=== PATIENT | female | born 1985 | race Caucasian/White ===

== ENCOUNTER → 2018-01-28 | Outpatient (CLI) | payer OTHER | LOC: CDED 08:49 | PROVIDERS: ATTEND Obstetrics & Gynecology | DX: O24.419 Gestational diabetes mellitus in pregnancy, unspecified control (principal) | CPT/HCPCS: 97802 ==

== ENCOUNTER 2018-02-16 20:56 | Inpatient (IN) | payer OTHER ==
[~2018-02-16] VITALS: Ht 167.6 cm; Wt 71.7 kg
[2018-02-16] MEDS ORDERED: LACTATED RINGER'S 1000 ML BOLUS IV PRN (22:00)
[2018-02-16] MEDS ORDERED: MINERAL OIL 10 ML VIAL TOPICAL PRN (22:00)
[2018-02-16] MEDS ORDERED: NS 500 ML BOLUS IV PRN (22:00)
[2018-02-16] MEDS ORDERED: ZOLPIDEM TARTRATE 5 MG TAB PO PRN (22:00)
[2018-02-16] MEDS ORDERED: NS 1000 ML IV PRN (22:00)
[2018-02-16] MEDS ORDERED: OXYTOCIN 30 UNITS 500ML PREMIX IV ONE (22:00)
[2018-02-16] MEDS ORDERED: ONDANSETRON HCL 4 MG/2 ML VIAL IV PUSH PRN (22:00)
[2018-02-16] MEDS ORDERED: LIDOCAINE HCL 1% 50 ML VIAL I-DERMAL PRN (22:00)
[2018-02-16] MEDS ORDERED: CITRIC ACID-SODIUM CITRATE LIQ 30 ML UDC PO SCH (22:00)
[2018-02-16] MEDS ORDERED: LIDOCAINE HCL 1% 50 ML VIAL INFIL PRN (22:00)
[2018-02-16] MEDS: LACTATED RINGER'S 1000 ML INJ 1,000 ML IV SCH (22:00)
[2018-02-16] MEDS ORDERED: DINOPROSTONE 10 MG INSERT-LEAVE FOR 12 HOURS VAGINAL ONE (22:00)
[2018-02-16 22:24] LABS: HEMATOCRIT 33.7 % (35.0-46.0); HEMOGLOBIN 11.8 GM/DL (11.6-15.3); MEAN CELL VOLUME 89.3 FL (80.0-100.0); MEAN CORPUSCULAR HEMOGLOBIN 31.4 PG (27.0-34.0); MEAN CORPUSCULAR HGB CONC 35.1 % (32.0-36.0); MEAN PLATELET VOLUME 7.9 FL (7.0-11.0); PLATELET COUNT 220 TH/MM3 (150-450); RED BLOOD COUNT 3.77 MIL/MM3 (4.00-5.30); RED CELL DISTRIBUTION WIDTH 13.8 % (11.6-17.2); WHITE BLOOD COUNT 9.8 TH/MM3 (4.0-11.0)
[2018-02-16 22:25] LABS: AUTOMATED NEUTROPHIL # 6.5 TH/MM3 (1.8-7.7); BASOPHIL % 0.3 % (0.0-2.0); EOSINOPHIL # 0.1 TH/MM3 (0-0.4); EOSINOPHIL % 1.4 % (0.0-4.0); LYMPH % 23.1 % (9.0-44.0); LYMPHOCYTE # 2.3 TH/MM3 (1.0-4.8); MONO % 9.4 % (0.0-8.0); MONOCYTE # 0.9 TH/MM3 (0-0.9); NEUT % 65.8 % (16.0-70.0)
[2018-02-16 22:27] LABS: BACTERIA, URINE RARE /hpf; BILIRUBIN, URINE NEG (NEG); BLOOD, URINE NEG (NEG); GLUCOSE,URINE NEG (NEG); KETONE, URINE TRACE mg/dL (NEG); MUCUS URINE MOD /lpf (OCC); NITRITE,URINE NEG (NEG); PH, URINE 5.5 (5.0-8.5); SQUAMOUS EPITHELIAL CELL URINE 2 /hpf (0-5); URINE COLOR YELLOW (YELLW/STRAW); URINE LEUKOCYTE ESTERASE NEG (NEG)
[2018-02-16 22:45] VITALS: RESP 18
[2018-02-16] MEDS ORDERED: PRENTAB7 (22:54)
[2018-02-16 23:35] VITALS: RESP 18
[2018-02-17] VITALS (42 sets, daily range): BP systolic 95–133; BP diastolic 56–96; PULSE 64–115; RESP 16–20; TEMP 97.8–98.7
[2018-02-17 02:18] LABS: ALBUMIN 2.9 GM/DL (3.4-5.0); DIRECT BILIRUBIN ADULT 0.1 MG/DL (0.0-0.2)
[2018-02-17 02:20] LABS: INDIRECT BILIRUBIN 0.1 MG/DL (0.0-0.8); TOTAL BILIRUBIN ADULT 0.2 MG/DL (0.2-1.0); TOTAL PROTEIN 6.9 GM/DL (6.4-8.2)
--- NOTE | 2018-02-17 07:45 | HHI.HP ---
HPI Chief Complaint 37 5/7 weeks G1 with persistently increasing BP over last five days. Mild in degree with BP in office yesterday 140/90 and 140/88. Some headaches, 1+ protein and CLARY of 7 for cervidil Date Seen: Feb 16, 2018 Time Seen: 11:00 Travel History International Travel<30 Days: No Contact w/Intl Traveler<30Days: No Known Affected Area: No History of Present Illness HPI 32 yo swf G1 with 8 week sonogram showing EDC 03/04/18 seen yesterday in office and brought in for cervidil as above. No nausea, vomiting, scotoma, RUQT or swelling. GFM. no leaking or bleeding. PNC began at 8 weeks with no prior HTN issues Booking BP was 120/60. Weeks Gestation: 38 Para: 0 History Past Medical History Medical History: Denies Significant Hx Past Surgical History Surgical History: No Previous Surgery Family History Family History: Negative Social History Alcohol Use: No Tobacco Use: No Substance Abuse: No Allergies-Medications (Allergen,Severity, Reaction): Coded Allergies: No Known Allergies (Unverified , 02/16/18) Home Meds Reported Medications Pnv No.95/Ferrous Fum/Folic AC ( Vitamins Tablet) 28 Mg Iron-800 Mcg Tablet 02/16/18 Review of Systems General / Constitutional: No: Fever, Weight Gain, Chills, Other Eyes: No: Diploplia, Blurred Vision, Visual changes, Pain, Photophobia HENT: No: Headaches, Vertigo, Lightheadedness Cardiovascular: No: Irregular Rhythm, Chest Pain or Discomfort, Palpitations, Tachycardia, Syncope, Varicosities, Edema, Cyanosis Respiratory: No: Cough, Short of Breath, Other Gastrointestinal: No: Nausea, Vomiting, Diarrhea Genitourinary: No: Decreased Urinary Output, Oliguria Musculoskeletal: No: Limited ROM, Weakness, Cramping, Edema, Pain Skin: No Rash, No Itching, No Dryness, No Lumps, No Change in Pigmentation, No Change in Nails, No Alopecia, No Lesions Neurologic: No: Weakness, Dizziness, Syncope, Focal Abnormalities, Coordination Problem, Headache, Slurred Speech, Seizures Psychiatric: No: Depression, Suicidal Ideations, Homicidal Ideation Endocrine: No: Heat Intolerance, Cold Intolerance, Polydipsia, Polyuria, Other Physical Exam Vital Signs Date Time Temp Pulse Resp B/P (MAP) Pulse Ox O2 Delivery O2 Flow Rate FiO2 02/17/18 07:30 18 02/17/18 07:29 98.2 02/17/18 07:27 70 112/69 (83) 02/17/18 05:30 18 02/17/18 05:00 16 02/17/18 04:28 97.8 16 02/17/18 04:20 70 128/79 (95) 02/17/18 03:14 16 02/17/18 02:41 16 02/17/18 02:15 18 02/17/18 01:13 18 02/17/18 00:45 18 02/17/18 00:14 18 02/17/18 00:14 98.0 70 118/70 (86) 02/16/18 23:35 18 02/16/18 22:45 18 Narrative GENERAL: Well-nourished, well-developed patient. SKIN: Warm and dry. HEAD: Normocephalic and atraumatic. EYES: No scleral icterus. No injection or drainage. ENT: No nasal drainage noted. Mucous membranes pink. Airway patent. NECK: Supple, trachea midline. No JVD. CARDIOVASCULAR: Regular rate and rhythm without murmurs, gallops, or rubs. RESPIRATORY: Breath sounds equal bilaterally. No accessory muscle use. BREASTS: Bilateral exam showed no masses , no retractions, no nipple discharge. ABDOMEN/GI: Abdomen soft, non-tender, bowel sounds present, no rebound, no guarding FH 38 vertex EFW 7 pounds pelvis clinically adequate 50% fingertip, very posterior and very low NITHIN strip category 1 BPP 8/8 but CLARY 7 EXTREMITIES: No cyanosis or edema. BACK: Nontender without obvious deformity. No CVA tenderness. NEUROLOGICAL: Awake and alert. Motor and sensory grossly within normal limits. Five out of 5 muscle strength in all muscle groups. Normal speech. Caprini VTE Risk Assessment Caprini VTE Risk Assessment: No/Low Risk (score <= 1) Caprini Risk Assessment Model Point Value = 1 Point Value = 2 Point Value = 3 Point Value = 5 Age 41-60 Minor surgery BMI > 25 kg/m2 Swollen legs Varicose veins or History of unexplained or recurrent spontaneous Oral contraceptives or hormone replacement Sepsis (< 1 month) Serious lung disease, including pneumonia (< 1 month) Abnormal pulmonary function Acute myocardial infarction Congestive heart failure (< 1 month) History of inflammatory bowel disease Medical patient at bed rest Age 61-74 Arthroscopic surgery Major open surgery (> 45 min) Laparoscopic surgery (> 45 min) Malignancy Confined to bed (> 72 hours) Immobilizing plaster cast Central venous access Age >= 75 History of VTE Family history of VTE Factor V Leiden Prothrombin [id number] Lupus anticoagulant Anticardiolipin antibodies Elevated serum homocysteine Heparin-induced thrombocytopenia Other congenital or acquired thrombophilia Stroke (< 1 month) Elective arthroplasty Hip, pelvis, or leg fracture Acute spinal cord injury (< 1 month) Prophylaxis Regimen Total Risk Factor Score Risk Level Prophylaxis Regimen 0-1 Low Early ambulation 2 Moderate Order ONE of the following: *Sequential Compression Device (SCD) *Heparin 5000 units SQ BID 3-4 Higher Order ONE of the following medications: *Heparin 5000 units SQ TID *Enoxaparin/Lovenox 40 mg SQ daily (WT < 150 kg, CrCl > 30 mL/min) *Enoxaparin/Lovenox 30 mg SQ daily (WT < 150 kg, CrCl > 10-29 mL/min) *Enoxaparin/Lovenox 30 mg SQ BID (WT < 150 kg, CrCl > 30 mL/min) AND/OR *Sequential Compression Device (SCD) 5 or more Highest Order ONE of the following medications: *Heparin 5000 units SQ TID (Preferred with Epidurals) *Enoxaparin/Lovenox 40 mg SQ daily (WT < 150 kg, CrCl > 30 mL/min) *Enoxaparin/Lovenox 30 mg SQ daily (WT < 150 kg, CrCl > 10-29 mL/min) *Enoxaparin/Lovenox 30 mg SQ BID (WT < 150 kg, CrCl > 30 mL/min) AND *Sequential Compression Device (SCD) Data Data Orders Orders Zolpidem (Ambien) (02/16/18 22:00) Dinoprostone Vag Insert (Cervidil Vag In (02/16/18 22:00) Lactated Ringer's 1000 Ml Inj (Lr 1000 M (02/16/18 22:00) Lactated Ringer's 1000 Ml Inj (Lr 1000 M (02/16/18 22:00) Sodium Chlorid 0.9% 500 Ml Inj (Ns 500 M (02/16/18 22:00) Sodium Chlor 0.9% 1000 Ml Inj (Ns 1000 M (02/16/18 22:00) Lidocaine 1% Inj (50 Ml) (Xylocaine 1% I (02/16/18 22:00) Citric Acid-Sodium Citrate Liq (Bicitra (02/16/18 22:00) Ondansetron Inj (Zofran Inj) (02/16/18 22:00) Fentanyl Inj (Fentanyl Inj) (02/16/18 22:00) Fentanyl Inj (Fentanyl Inj) (02/16/18 22:00) Oxytocin 30 Units-500ml Premix (Pitocin (02/16/18 22:00) Lidocaine 1% Inj (50 Ml) (Xylocaine 1% I (02/16/18 22:00) Light Mineral Oil (Muri-Lube Oil) (02/16/18 22:00) Admit To Inpatient (02/16/18 ) Diet Liquid (02/17/18 Breakfast) Activity Oob Ad Vanesa (02/16/18 22:17) Activity Oob Ad Vanesa (02/16/18 22:17) ^ Labor Induction (02/16/18 22:17) ^ Vaginal Insert (02/16/18 22:17) ^ Vaginal Lavage (02/16/18 22:17) Heart (02/16/18 22:17) Code Status (02/16/18 22:17) Vital Signs (Adult) .Per protocol (02/16/18 22:17) Activity Oob Ad Vanesa (02/16/18 22:17) Heart (02/16/18 22:17) Amnioinfusion (02/16/18 22:17) Urinary Catheter Management .ONCE (02/16/18 22:17) Complete Blood Count With Diff (02/16/18 22:17) Hold Clot (02/16/18 22:17) Abo/Rh Blood Type (02/16/18 22:17) Urinalysis - C+S If Indicated (02/16/18 22:17) Ob/Psych Drug Screen, Urine (02/16/18 22:17) Resp Oxygen Non Rebreathe Mask (02/16/18 ) ^ Epidural / Intrathecal Infus (02/16/18 22:17) Specimen To Be Collected PRN (3/26/18 22:17) Hepatic Functional Panel (02/16/18 22:17) Labs Laboratory Tests Test 02/16/18 22:00 White Blood Count 9.8 Red Blood Count 3.77 Hemoglobin 11.8 Hematocrit 33.7 Mean Corpuscular Volume 89.3 Mean Corpuscular Hemoglobin 31.4 Mean Corpuscular Hemoglobin Concent 35.1 Red Cell Distribution Width 13.8 Platelet Count 220 Mean Platelet Volume 7.9 Neutrophils (%) (Auto) 65.8 Lymphocytes (%) (Auto) 23.1 Monocytes (%) (Auto) 9.4 Eosinophils (%) (Auto) 1.4 Basophils (%) (Auto) 0.3 Neutrophils # (Auto) 6.5 Lymphocytes # (Auto) 2.3 Monocytes # (Auto) 0.9 Eosinophils # (Auto) 0.1 Basophils # (Auto) 0.0 CBC Comment DIFF FINAL Differential Comment Urine Color YELLOW Urine Turbidity CLEAR Urine pH 5.5 Urine Specific [place] 1.027 Urine Protein TRACE Urine Glucose (UA) NEG Urine Ketones TRACE Urine Occult Blood NEG Urine Nitrite NEG Urine Bilirubin NEG Urine Urobilinogen LESS THAN 2.0 Urine Leukocyte Esterase NEG Urine RBC LESS THAN 1 Urine WBC LESS THAN 1 Urine Squamous Epithelial Cells 2 Urine Bacteria RARE Urine Mucus MOD Microscopic Urinalysis Comment CULT NOT INDICATED Total Bilirubin 0.2 Direct Bilirubin 0.1 Indirect Bilirubin 0.1 Aspartate Amino Transf (AST/SGOT) 14 Alanine Aminotransferase (ALT/SGPT) 14 Alkaline Phosphatase 128 Total Protein 6.9 Albumin 2.9 Urine Opiates Screen NEG Urine Barbiturates Screen NEG Urine Amphetamines Screen NEG Urine Benzodiazepines Screen NEG Urine Cocaine Screen NEG Urine Cannabinoids Screen NEG Assessment/Plan Assessment and Plan mild ssx of pre eclampsia discussed bedrest and repeating assessment in 48 hours vs cervidil Reviewed risks and benefits chose cervidil last evening and came in at 8 pm Karla Carcamo MD Feb 17, 2018 07:45
--- NOTE | 2018-02-17 07:48 | PD.LABORPN ---
Subjective Subjective slept comfortably with minimal UCs no leaking or bleeding GFM no PARSONS , N V Objective Vital Signs Vital Signs Date Time Temp Pulse Resp B/P (MAP) Pulse Ox O2 Delivery O2 Flow Rate FiO2 02/17/18 07:30 18 02/17/18 07:29 98.2 02/17/18 07:27 70 112/69 (83) 02/17/18 05:30 18 02/17/18 05:00 16 02/17/18 04:28 97.8 16 02/17/18 04:20 70 128/79 (95) 02/17/18 03:14 16 02/17/18 02:41 16 02/17/18 02:15 18 02/17/18 01:13 18 02/17/18 00:45 18 02/17/18 00:14 18 02/17/18 00:14 98.0 70 118/70 (86) Objective 80-90% ft to one still posterior behind a very low head. uncomfortable exam no edema Weeks Gestation: 38 Assessment/Plan Assessment and Plan elevated BPs in office and normotensive here LFTs, platelets normal UA trace protein Will allow breakfast and shower and then pitocin if no change by afternoon, discuss continuing vs sending home and close surveillance in next week. Karla Carcamo MD Feb 17, 2018 07:48
[2018-02-17] MEDS ORDERED: OXYTOCIN 30 UNITS-500ML PREMIX 500 ML IV PRN (08:00)
[2018-02-17] MEDS: LACTATED RINGER'S 1000 ML INJ 1,000 ML IV SCH (09:17)
--- NOTE | 2018-02-17 21:35 | PD.LABORPN ---
Subjective Subjective Seen at 6 pm sitting on birthing ball had some mildly painful contractions earlier--none of significance now on 20 mu/min pit Objective Vital Signs Vital Signs Date Time Temp Pulse Resp B/P (MAP) Pulse Ox O2 Delivery O2 Flow Rate FiO2 02/17/18 21:00 20 02/17/18 20:57 98.0 02/17/18 20:57 72 128/85 (99) 02/17/18 19:20 82 18 121/82 (95) 02/17/18 17:31 68 117/76 (90) 02/17/18 16:31 84 123/66 (85) 02/17/18 16:00 68 124/88 (100) 02/17/18 15:47 98.7 02/17/18 15:47 20 02/17/18 15:30 77 116/74 (88) 02/17/18 15:00 85 119/79 (92) 02/17/18 14:30 72 118/81 (93) 02/17/18 14:00 73 116/75 (89) Objective head at +1 station and NITHIN and cervix very thin but cervix still facing backward and very much posterior. Weeks Gestation: 38 Pt started active labor?: No Medical induction of labor?: Yes Artificial rupture of membrane: No Assessment/Plan Assessment and Plan no symptoms of pre eclampsia at this time fluid was low and very low--patient desires to continue and this is reasonabl shower, dinner and pit off for an hour and then resum if unable to arom in am due to extreme pain with exam; will proceed with epidural and then pull cervix forward. Karla Carcamo MD Feb 17, 2018 21:35
[2018-02-18] VITALS (43 sets, daily range): BP systolic 94–132; BP diastolic 54–98; PULSE 60–100; RESP 16–22; TEMP 97.1–98.7; O2SAT 89–100
[2018-02-18] MEDS: LACTATED RINGER'S 1000 ML INJ 1,000 ML IV SCH (06:42)
[2018-02-18] MEDS ORDERED: fentaNYL 2MCG-BUPIV 0.125% INJ 100 ML ONE (06:46)
[2018-02-18] MEDS ORDERED: DO NOT ADMINISTER ANTICOAGULANTS PRN (08:00)
[2018-02-18] MEDS ORDERED: NO SYSTEM NARCOTICS PRN (08:00)
[2018-02-18] MEDS ORDERED: fentaNYL 2MCG-BUPIV 0.125% 100 ML EPIDURAL SCH (08:00)
[2018-02-18] MEDS ORDERED: ePHEDrine/NS 25 MG/5 ML SYRINGE IV PUSH PRN (08:00)
--- NOTE | 2018-02-18 09:42 | PD.OB.DELI ---
Weeks gestation: 38 Pt started active labor?: Yes Active labor start date: Feb 18, 2018 Active labor start time: 08:00 Medical induction of labor?: Yes Medical induction start date: Feb 17, 2018 Medical induction start time: 08:00 Artificial rupture of membrane: No Anesthesia: Epidural Episiotomy: None Vaginal Delivery: Normal Presentation: Occiput anterior Nuchal Cord: None Delayed cord clamping (45 sec): Yes Infant: Female Delivery date: Feb 18, 2018 Delivery time: 09:42 One Minute : 9 Five Minute : 9 Weight: 7 Placenta: Spontaneous delivery Laceration: 2 deg Repair: Chromic running Estimated blood loss: 200 Additional Information severe hemorrhoids Karla Carcamo MD Feb 18, 2018 09:42
[2018-02-18] MEDS ORDERED: ZOLPIDEM TARTRATE 5 MG TAB PO PRN (09:45)
[2018-02-18] MEDS ORDERED: WITCH HAZEL 50%/GLYCERIN 12.5% 40 PAD JAR TOPICAL PRN (09:45)
[2018-02-18] MEDS ORDERED: ALUMINUM/MAGNESIUM/SIMETH 30 ML CUP PO PRN (09:45)
[2018-02-18] MEDS ORDERED: ACETAMINOPHEN 325 MG TAB PO PRN (09:45)
[2018-02-18] MEDS ORDERED: SODIUM CHLORIDE 0.9% FLUSH 10 ML FLUSH IV FLUSH PRN (09:45)
[2018-02-18] MEDS ORDERED: BENZOCAINE 20% TOPICAL SPRAY 60 ML CAN TOPICAL PRN (09:45)
[2018-02-18] MEDS ORDERED: ONDANSETRON ODT 4 MG TAB PO PRN (09:45)
[2018-02-18] MEDS ORDERED: DOCUSATE SODIUM 50 MG/SENNA 8.6 MG TAB PO PRN (09:45)
[2018-02-18] MEDS ORDERED: OXYTOCIN 30 UNITS-500ML PREMIX 500 ML IV SCH (11:00)
[2018-02-18] MEDS: IBUPROFEN 800 MG TAB PO PRN ×2 (11:47→19:38)
[2018-02-18] MEDS ORDERED: MEASLES, MUMPS, RUBELLA VACCINE 0.5 ML VIAL SQ ONE (16:00)
[2018-02-18] MEDS ORDERED: DIPHTH/TETANUS/ACEL PERTUSSIS (BOOSTER) 0.5 ML VIAL/PFS IM ONE (16:00)
[2018-02-18] MEDS ORDERED: SODIUM CHLORIDE 0.9% FLUSH 10 ML FLUSH IV FLUSH SCH (21:00)
[2018-02-19] MEDS: IBUPROFEN 800 MG TAB PO PRN ×3 (03:19→19:10)
[2018-02-19] MEDS ORDERED: IBUP-232 PO (07:29)
--- NOTE | 2018-02-19 07:29 | HHI.DCPOC ---
Discharge Care Plan Diagnosis: (1) Normal vaginal delivery (2) Gestational hypertension Your Health Problems Are: Vaginal delivery Report Symptoms to Your Doctor -Temperature above 100.5 degrees -Redness, of incision or excessive or foul smelling drainage -Unusual pain or calf pain -Increased vaginal bleeding -Painful or difficulty urinating -Feelings of extreme sadness or anxiety after 2 weeks Goals to Promote Your Health * To prevent worsening of your condition and complications * To maintain your health at the optimal level Directions to Meet Your Goals Take your medications as prescribed Follow your dietary instruction Follow activity as directed Ensure plenty of rest for recovery Drink fluids for hydration Keep your appointments as scheduled Take your immunizations and boosters as scheduled If your symptoms worsen call your PCP, if no PCP go to Urgent Care Center or Emergency Room Smoking is Dangerous to Your Health. Avoid second hand smoke Call the 24-hour crisis hotline for domestic abuse at Regino Lora MD Feb 19, 2018 07:29
[2018-02-19 07:31] VITALS: BP 112/78; PULSE 78; RESP 17; TEMP 98.4
--- NOTE | 2018-02-19 07:32 | HHI.OB ---
Subjective Post Day: 1 Remarks Doing well, pain controlled, ambulating, voiding, vaginal bleeding less than menses. Objective Vitals/I&O Vital Signs Date Time Temp Pulse Resp B/P (MAP) Pulse Ox O2 Delivery O2 Flow Rate FiO2 02/18/18 20:32 98.4 81 17 117/76 (90) 02/18/18 16:45 77 18 106/67 (80) 89 02/18/18 16:45 97.1 02/18/18 12:20 18 02/18/18 11:40 20 02/18/18 11:30 63 129/89 (102) 02/18/18 10:55 20 02/18/18 10:45 91 125/76 (92) 02/18/18 10:30 97 124/83 (97) 02/18/18 10:23 20 02/18/18 10:15 76 125/77 (93) 02/18/18 10:10 20 02/18/18 10:01 90 122/84 (97) 02/18/18 09:46 100 20 129/88 (102) 02/18/18 09:40 20 02/18/18 09:30 94 132/88 (103) 02/18/18 08:46 20 02/18/18 08:30 70 95/54 (68) 02/18/18 08:00 77 111/98 (102) 02/18/18 07:42 72 105/59 (74) 02/18/18 07:40 83 99/78 (85) 02/18/18 07:36 84 112/76 (88) 02/18/18 07:33 87 114/73 (87) Objective Remarks GENERAL: Well-nourished, well-developed patient. CARDIOVASCULAR: Regular rate and rhythm without murmurs, gallops, or rubs. RESPIRATORY: Breath sounds equal bilaterally. No accessory muscle use. ABDOMEN/GI: Abdomen soft, non-tender. Fundus: Firm, non-tender at umbilicus. GENITOURINARY: Light to moderate bleeding. EXTREMITIES: No cyanosis or edema, non-tender, without signs of DVT. Medications and IVs Current Medications Medications (Trade) Dose Ordered Sig/Jose F Route Start Time Stop Time Status Last Admin Lactated Ringer's 1,000 ml @ 125 mls/hr Q8H IV 02/16/18 22:00 3/28/18 06:42 Lactated Ringer's 1,000 ml @ 3,000 mls/hr BOLUS PRN IV 02/16/18 22:00 Sodium Chloride 500 ml @ 1,000 mls/hr BOLUS PRN IV 02/16/18 22:00 Sodium Chloride 1,000 ml @ 100 mls/hr Q10H PRN IV 02/16/18 22:00 (Bicitra Liq) 30 ml COPING MACHINE OPERATOR PO 02/16/18 22:00 02/19/18 21:59 (Muri-Lube Oil) 10 ml UNSCH PRN TOPICAL 02/16/18 22:00 Oxytocin 500 ml @ 2 mls/hr TITRATE PRN IV 02/17/18 08:00 02/17/18 09:13 Miscellaneous Information No systemic narcotics to be given except... UNSCH PRN .XX 02/18/18 08:00 02/19/18 07:59 Miscellaneous Information DO NOT ADMINISTER ANY ANTICOAGUL... UNSCH PRN .XX 02/18/18 08:00 02/19/18 07:59 Fentanyl/ Bupivacaine HCl 100 ml @ 0 mls/hr TITRATE EPIDURAL 02/18/18 08:00 (ePHEDrine/NS 25 MG/5 ML SYR) 10 mg UNSCH PRN IV PUSH 02/18/18 08:00 02/19/18 07:59 (NS Flush) 2 ml BID IV FLUSH 02/18/18 21:00 (NS Flush) 2 ml UNSCH PRN IV FLUSH 02/18/18 09:45 (Tylenol) 650 mg Q4H PRN PO 02/18/18 09:45 (Motrin) 800 mg Q8H PRN PO 02/18/18 09:45 02/19/18 03:19 (Americaine 20% Top Spr) 1 spray Q4H PRN TOPICAL 02/18/18 09:45 (Tucks Pads) 1 applic QID PRN TOPICAL 02/18/18 09:45 ([place]-Colace) 2 tab Q12H PRN PO 02/18/18 09:45 (Ambien) 5 mg HS PRN PO 02/18/18 09:45 (Mag-Al Plus Susp Liq) 15 ml Q8H PRN PO 02/18/18 09:45 (Zofran Odt) 4 mg Q6H PRN PO 02/18/18 09:45 Assessment/Plan Assessment and Plan 32 yo s/p at 38w 1. PPD #1: Doing well, anticipate discharge home in the next 24 hours -Female 2. GHTN?: Blood pressures normotensive following delivery, CBC, platelets, LFTs normal. Creatinine and P:C Missing, no signs or symptoms of preeclampsia, will follow up in 1 week in the office for blood pressure check Regino Lora MD Feb 19, 2018 07:32
[2018-02-19 19:30] VITALS: BP 116/73; PULSE 82; RESP 16; TEMP 98; O2SAT 98
[2018-02-20] MEDS: IBUPROFEN 800 MG TAB PO PRN (07:28)
[2018-02-20 07:30] VITALS: BP 133/78; PULSE 72; RESP 18; TEMP 97.6; O2SAT 96
--- NOTE | 2018-02-20 08:07 | HHI.OB ---
Subjective Post Day: 2 Remarks no complaints, ready for discharge Objective Vitals/I&O Vital Signs Date Time Temp Pulse Resp B/P (MAP) Pulse Ox O2 Delivery O2 Flow Rate FiO2 02/19/18 19:30 98.0 82 16 98 02/19/18 19:30 116/73 (87) Objective Remarks GENERAL: Well-nourished, well-developed patient. CARDIOVASCULAR: Regular rate and rhythm without murmurs, gallops, or rubs. RESPIRATORY: Breath sounds equal bilaterally. No accessory muscle use. ABDOMEN/GI: Abdomen soft, non-tender. Fundus: Firm, non-tender at umbilicus. GENITOURINARY: Light to moderate bleeding. EXTREMITIES: No cyanosis or edema, non-tender, without signs of DVT. Medications and IVs Current Medications Medications (Trade) Dose Ordered Sig/Jose F Route Start Time Stop Time Status Last Admin Lactated Ringer's 1,000 ml @ 125 mls/hr Q8H IV 02/16/18 22:00 02/18/18 06:42 Lactated Ringer's 1,000 ml @ 3,000 mls/hr BOLUS PRN IV 02/16/18 22:00 Sodium Chloride 500 ml @ 1,000 mls/hr BOLUS PRN IV 02/16/18 22:00 Sodium Chloride 1,000 ml @ 100 mls/hr Q10H PRN IV 02/16/18 22:00 (Muri-Lube Oil) 10 ml UNSCH PRN TOPICAL 02/16/18 22:00 Oxytocin 500 ml @ 2 mls/hr TITRATE PRN IV 02/17/18 08:00 02/17/18 09:13 Fentanyl/ Bupivacaine HCl 100 ml @ 0 mls/hr TITRATE EPIDURAL 02/18/18 08:00 (NS Flush) 2 ml BID IV FLUSH 02/18/18 21:00 (NS Flush) 2 ml UNSCH PRN IV FLUSH 02/18/18 09:45 (Tylenol) 650 mg Q4H PRN PO 02/18/18 09:45 (Motrin) 800 mg Q8H PRN PO 02/18/18 09:45 02/20/18 07:28 (Americaine 20% Top Spr) 1 spray Q4H PRN TOPICAL 02/18/18 09:45 (Tucks Pads) 1 applic QID PRN TOPICAL 02/18/18 09:45 02/19/18 22:43 ([place]-Colace) 2 tab Q12H PRN PO 02/18/18 09:45 02/19/18 22:43 (Ambien) 5 mg HS PRN PO 02/18/18 09:45 (Mag-Al Plus Susp Liq) 15 ml Q8H PRN PO 02/18/18 09:45 (Zofran Odt) 4 mg Q6H PRN PO 02/18/18 09:45 Assessment/Plan Problem List: (1) Normal vaginal delivery ICD Codes: O80 - Encounter for full-term uncomplicated delivery Assessment and Plan 32 yo s/p at 38w 1. PPD #2: Doing well, anticipate discharge home -Female 2. GHTN?: Blood pressures normotensive following delivery, CBC, platelets, LFTs normal. Discharge Planning routine Attending Attestation pt seen by vEe Henriquez MD Feb 20, 2018 08:07
== END 2018-02-20 11:41 | disposition home or self-care (01) | DRG 775 ==
LOC: H2EA 20:56 → H1EA 02-18 13:40
PROVIDERS: ADMIT Obstetrics & Gynecology; ATTEND Obstetrics & Gynecology
PROC: 3E033VJ Introduction of Other Hormone into Peripheral Vein, Percutaneous Approach (ICD-10-PCS; 2018-02-17)
PROC: 10E0XZZ Delivery of Products of Conception, External Approach (ICD-10-PCS; principal; 2018-02-18)
PROC: 0KQM0ZZ Repair Perineum Muscle, Open Approach (ICD-10-PCS; 2018-02-18)
PROC: 00HU33Z Insertion of Infusion Device into Spinal Canal, Percutaneous Approach (ICD-10-PCS; 2018-02-18)
PROC: 3E0R3BZ Introduction of Anesthetic Agent into Spinal Canal, Percutaneous Approach (ICD-10-PCS; 2018-02-18)
DX: O13.4 Gestational [pregnancy-induced] hypertension without significant proteinuria, complicating childbirth (principal); O22.43 Hemorrhoids in pregnancy, third trimester; O70.1 Second degree perineal laceration during delivery; Z3A.38 38 weeks gestation of pregnancy; Z37.0 Single live birth
CPT/HCPCS: 59025; 80076; 80307; 81001; 82948; 85025; 86900; 86901; 90715; G0481; J2590; J3010; J7120